=== PATIENT | female | born 1970 | race Caucasian/White ===

== ENCOUNTER 2024-08-16 20:18 | Emergency (ER) | payer OTHER ==
[~2024-08-16] VITALS: Ht 167.6 cm; Wt 90.7 kg
[2024-08-16 21:00] VITALS: BP 140/93; TEMP 97.9; O2SAT 98
== END 2024-08-16 22:36 | disposition left against medical advice (07) ==
LOC: ER 20:18
DX: R10.84 Generalized abdominal pain (principal); Z53.21 Procedure and treatment not carried out due to patient leaving prior to being seen by health care provider

== ENCOUNTER 2024-09-29 00:02 | Emergency (ER) | payer OTHER ==
[~2024-09-29] VITALS: Ht 167.6 cm; Wt 95.3 kg
[2024-09-29 00:18] VITALS: BP 149/89; TEMP 98; O2SAT 98
[2024-09-29] MEDS ORDERED: TRAMADOL HCL 50 MG TABLET ONE (00:31)
[2024-09-29] MEDS: TRAMADOL HCL 50 MG TABLET PO ONE (00:32)
[2024-09-29] MEDS ORDERED: TRAM50TA2 PO (00:32)
== END 2024-09-29 00:40 | disposition home or self-care (01) ==
LOC: ER 00:02
DX: N81.4 Uterovaginal prolapse, unspecified (principal); I10 Essential (primary) hypertension; Z85.42 Personal history of malignant neoplasm of other parts of uterus; Z86.718 Personal history of other venous thrombosis and embolism; Z60.2 Problems related to living alone

== ENCOUNTER 2024-10-27 05:58 | Emergency (ER) | payer OTHER ==
[~2024-10-27] VITALS: Ht 167.6 cm; Wt 95.3 kg
[~2024-10-27 05:58] MED LIST: TRAM50TA2 PO
[2024-10-27 06:26] VITALS: BP 156/97; TEMP 98.1; O2SAT 98
== END 2024-10-27 06:55 | disposition home or self-care (01) ==
LOC: ER 06:01
DX: M79.671 Pain in right foot (principal); M79.672 Pain in left foot; I10 Essential (primary) hypertension; Z85.42 Personal history of malignant neoplasm of other parts of uterus; Z86.718 Personal history of other venous thrombosis and embolism; Z60.2 Problems related to living alone